=== PATIENT | female | born 1935 | race Caucasian/White ===

== ENCOUNTER 2023-11-22 23:41 | Observation (INO) | payer MEDICARE, SELFPAY ==
[2023-11-23] VITALS (31 sets, daily range): BP systolic 131–169; BP diastolic 62–76; PULSE 58–79; RESP 14–23; TEMP 36.2–36.7; O2SAT 92–98; BMI 26.5
--- NOTE | 2023-11-23 00:01 | ED_ITS ---
HPI - Abdominal Pain General Chief Complaint: Abdominal Pain Stated Complaint: Esophageal foreign body Time Seen by Provider: 11/22/23 23:55 History of Present Illness HPI narrative: 88-year-old female transferred here from [facility] for EGD removal of impacted esophageal foreign body. Patient with history of gastroesophageal reflux, previous problem with impacted food in the esophagus, was eating steak earlier today, with subsequent persisting esophageal foreign body sensation, unable to swallow her own secretions, no response to attempted medical therapy glucagon an effervescent swallows, no surgery available at [facility] ([place]), ED physician there Dr Weir contacted surgery Dr. Zuniga here, who can perform EGD removal of the foreign body tomorrow morning. Chest x-ray there reportedly showed no mediastinal air or obvious visualized foreign body. No in atient beds here now, can keep an ED here awaiting EGD foreign body extraction procedure later this morning. ED physician Dr Edgar contacted Dr. Zuniga prior to transfer, no pre-op or other further workup required. Related Data Allergies Allergy/AdvReac Type Severity Reaction Status Date / Time No Known Drug Allergies Allergy Verified 11/22/23 23:59 Review of Systems Review of Systems Narrative: per HPI Patient History Social History Smoking Status: Never smoker Exam Narrative Exam Narrative: GENERAL: Well-developed patient, in mild distress. Spits oral secretions into bag HEAD: Atraumatic. Normocephalic. EYES: Pupils equal round and reactive. Extraocular motions intact. No scleral icterus. No injection or drainage. ENT: Nose without bleeding, purulent drainage. Throat without erythema, tonsillar hypertrophy or exudate. Airway patent. NECK: Trachea midline. Non tender. No obvious anterior masses, no assymetry CARDIOVASCULAR: Regular rate and rhythm without murmurs, gallops, or rubs. RESPIRATORY: Clear to auscultation. Breath sounds equal bilaterally. No wheezes, rales, or rhonchi. GASTROINTESTINAL: Abdomen soft, non-tender, nondistended. EXTREMITIES: No edema or joint tenderness. BACK: Nontender without deformity or crepitance. No flank tenderness. NEURO: AOx3. Grossly nonfocal motor exam SKIN: No rash or erythema of visible areas Initial Vital Signs Initial Vital Signs: Vital Signs Temperature 97.2 F L 11/23/23 00:01 Pulse Rate 74 11/23/23 00:01 Respiratory Rate 16 11/23/23 00:01 Blood Pressure 169/74 H 11/23/23 00:01 Pulse Oximetry 98 11/23/23 00:01 Oxygen Delivery Method Room Air 11/23/23 00:01 Course Orders Ordered: Discontinued Medications Diphenhydramine HCl (Diphenhydramine 50 Mg/Ml Vial) 50 mg IV NOW ONE Stop: 11/23/23 00:38 Last Admin: 11/23/23 01:17 Dose: Not Given Documented By: HNG Lactated Ringer's (Lactated Ringers) 1,000 mls @ 42 mls/hr IV CONT ELMO Last Admin: 11/23/23 12:04 Dose: 42 mls/hr Documented By: CG Lactated Ringer's (Lactated Ringers) 1,000 mls @ 120 mls/hr IV CONT ELMO Methylprednisolone (Methylprednisolone 125 Mg/2 Ml Vial) 125 mg IV NOW ONE Stop: 11/23/23 00:38 Last Admin: 11/23/23 01:17 Dose: Not Given Documented By: HNG Morphine Sulfate (Morphine 4 Mg/Ml Inj) 4 mg IV NOW ONE Stop: 11/23/23 00:39 Last Admin: 11/23/23 07:36 Dose: Not Given Documented By: MPO Morphine Sulfate (Morphine 2 Mg/Ml Inj) 2 mg IV NOW ONE Stop: 11/23/23 00:53 Last Admin: 11/23/23 01:18 Dose: 2 mg Documented By: Vital Signs Vital signs: Vital Signs - 8 hr 11/23/23 00:01 11/23/23 00:07 11/23/23 00:30 Temperature 97.2 F L Pulse Rate 74 70 67 Respiratory Rate 16 Blood Pressure 169/74 H Pulse Oximetry 98 94 97 Oxygen Delivery Method Room Air 11/23/23 01:00 11/23/23 01:02 11/23/23 01:02 Temperature Pulse Rate 65 65 Respiratory Rate 18 Blood Pressure 160/72 H Pulse Oximetry 94 98 Oxygen Delivery Method 11/23/23 01:30 11/23/23 02:00 11/23/23 02:00 Temperature Pulse Rate 70 66 Respiratory Rate Blood Pressure 156/70 H Pulse Oximetry 93 93 Oxygen Delivery Method 11/23/23 02:30 11/23/23 03:00 11/23/23 03:30 Temperature Pulse Rate 67 69 79 Respiratory Rate 18 Blood Pressure Pulse Oximetry 94 96 96 Oxygen Delivery Method 11/23/23 04:00 11/23/23 04:00 11/23/23 04:30 Temperature Pulse Rate 65 62 Respiratory Rate 18 Blood Pressure 141/65 H Pulse Oximetry 93 95 94 Oxygen Delivery Method Room Air 11/23/23 05:00 Temperature Pulse Rate 62 Respiratory Rate Blood Pressure Pulse Oximetry 93 Oxygen Delivery Method Room Air MDM - Abdominal Pain Medical Records Medical records narrative: Reviewed transfer records from [facility], as per HPI MDM Narrative Medical decision making narrative: 88-year-old female with impacted food esophageal foreign body, refractory to medical therapy at outside facility [facility], transferred for endoscopic removal, Dr. Zuniga to consult, aware of the patient coming here to the emergency department coordinate EGD removal. Chest x-ray done at outside facility showed no mediastinal air, no further workup required per ED physician communication with surgery Dr. Zuniga. Keep NPO. No inpatient beds here available. Hold in ED awaiting EGD procedure. She did want pain medication when offered, IV morphine 2 mg for comfort. 0540, patient reported to nursing that she feels better, can swallow her secretions, we will try oral fluid challenge. Failed, resumed NPO status for planned EGD. To OR later this morning with surgery Dr Zuniga for EGD esophageal FB removal Discharge Plan Departure Patient Disposition: Admitted to Surgery Clinical Impression: Impacted esophageal foreign body Qualifiers: Encounter type: initial encounter Qualified Code(s): T18.108A - Unspecified foreign body in esophagus causing other injury, initial encounter Admit Date/Time: 11/23/23 05:25 Admit Provider: Sohail Zuniga
--- NOTE | 2023-11-23 00:27 | PC.NURSE ---
Pt is able to manage secretions.
[2023-11-23] MEDS: MORPHINE 2 MG/ML INJ IV (01:18)
--- NOTE | 2023-11-23 02:20 | PC.NURSE ---
Pt requesting something for pain. Dr Anderson notified. New orders received.
--- NOTE | 2023-11-23 05:47 | PC.NURSE ---
Pt up to [facility]. States that her pain in esophagus has disappeared. Dr Anderson notified. MD may for PO challenge.
--- NOTE | 2023-11-23 05:54 | PC.NURSE ---
Pt given PO challenge of a few sips of water. Pt reports that the pain and hiccups returned. Feels like obstruction is still present. Dr Anderson updated.
--- NOTE | 2023-11-23 12:03 | PM.HP.1 ---
History of Present Illness History of Present Illness Date Patient Seen: 11/23/23 Time Patient Seen: 12:03 Chief complaint: Esophageal foreign body Narrative: Kamala Lopes is an 88 year old woman who presented initially to the ER at [facility] for an esophageal food impaction. She had been eating steak yesterday. She has been unable to swallow her secretions. She was transferred here because there was no surgeon available at [place] to take care of emergency patients and there was no capacity at [facility]. She has had 1 prior episode food impaction which required an esophagogastroduodenoscopy about 10 or 12 years ago. [facility] Social History Smoking Status: Never smoker Meds Home Medications and Allergies Allergies Allergy/AdvReac Type Severity Reaction Status Date / Time No Known Drug Allergies Allergy Verified 11/22/23 23:59 Exam Vital Signs (past 8 hours): - 11/23/23 04:30 11/23/23 05:00 11/23/23 05:30 Pulse Rate 62 62 65 Blood Pressure Pulse Oximetry 94 93 93 Oxygen Delivery Method Room Air 11/23/23 06:08 11/23/23 06:09 11/23/23 06:09 Pulse Rate 64 64 Blood Pressure 166/72 H Pulse Oximetry 95 95 Oxygen Delivery Method 11/23/23 06:30 11/23/23 07:00 11/23/23 07:36 Pulse Rate 65 63 62 Blood Pressure Pulse Oximetry 96 96 96 Oxygen Delivery Method 11/23/23 07:38 11/23/23 07:38 11/23/23 08:00 Pulse Rate 59 L 60 Blood Pressure 149/68 H Pulse Oximetry 98 93 Oxygen Delivery Method 11/23/23 08:00 11/23/23 08:30 11/23/23 09:00 Pulse Rate 62 58 L Blood Pressure 141/65 H Pulse Oximetry 94 96 Oxygen Delivery Method 11/23/23 09:11 11/23/23 09:11 11/23/23 09:30 Pulse Rate 68 59 L Blood Pressure 142/64 H Pulse Oximetry 96 96 Oxygen Delivery Method 11/23/23 10:00 11/23/23 10:00 Pulse Rate 63 Blood Pressure 134/62 Pulse Oximetry 95 Oxygen Delivery Method Oxygen Delivery Method Room Air [facility] General: No acute distress Resp Effort & Inspection: normal respiratory effort Assessment & Plan Assessment and plan (1) Impacted esophageal foreign body: Qualifiers: Encounter type: initial encounter Qualified Code(s): T18.108A - Unspecified foreign body in esophagus causing other injury, initial encounter Status: Acute Plan We reviewed the risks and benefits of esophagogastroduodenoscopy for an impacted food bolus. She would like to proceed.
[2023-11-23] MEDS: LACTATED RINGERS 1,000 ML 42 ML IV (12:04)
--- NOTE | 2023-11-23 13:08 | PM.OP.EGD ---
Operative Date/Time/Diagnoses Date of procedure: 11/23/23 Time of procedure: 13:08 Pre-op diagnosis: Dysphagia Post-op diagnosis: same Procedure & Clinicians Study performed: Esophagogastroduodenoscopy Same procedure as scheduled: Yes Surgeon: Sohail Zuniga Procedure Notes Procedure in detail: Surgeon: Sohail Zuniga MD Anesthesia: Denise Sánchez MD A timeout was performed. A bite blocked was placed. The patient was positioned in the left lateral decubitus position. Anesthesia was administered. The endoscope was inserted through the bite block and passed through the esophagus and stomach and into the duodenum. The duodenal mucosa appeared normal. The scope was withdrawn into the duodenal bulb and no abnormalities were found. The scope was withdrawn into the stomach. No abnormalities were seen. The rest of the stomach was normal. The scope was retroflexed and no hiatal hernia was noted. The scope was withdrawn into the esophagus and there was contusion and inflammation of the distal esophagus suggesting a recent food impaction. The remainder of the esophagus was normal. The scope was withdrawn. The patient was awakened and brought to recovery. Sedation time: 6 minutes Findings: Inflammation, edema and contusion of the distal esophagus consistent with a recent food bolus Post-procedure Disposition: PACU
== END 2023-11-23 13:41 | disposition home or self-care (01) ==
LOC: ED 11-23 01:39 → AC 11-23 05:26
PROVIDERS: Admitting Provider Surgery; Emergency Provider Emergency Medicine; PCP Internal Medicine; Referring Provider Emergency Medicine; Visit Provider Surgery
PROC: 0DJ08ZZ Inspection of Upper Intestinal Tract, Via Natural or Artificial Opening Endoscopic (ICD-10-PCS; CPT 43235; principal; 2023-11-23 12:00)
DX: S27.812A Contusion of esophagus (thoracic part), initial encounter (principal); K44.9 Diaphragmatic hernia without obstruction or gangrene
CPT/HCPCS: 43235; 96374; 99283; 99284; G0378; J0330; J1100; J2270; J2405; J2704